=== PATIENT | female | born 1975 | race Caucasian/White ===

== ENCOUNTER 2021-07-27 17:36 | Emergency (ER) | payer SELFPAY ==
[2021-07-27 19:37] LABS: BASOPHIL 0.7 % (0-2); EOSINOPHIL 2.2 % (0-5); HCT 32.7 % (37.0-47.0); HGB 10.6 g/dl (12.5-16.0); LYMPHOCYTE 45.3 % (15-48); MCH 33.1 pg (25.0-31.0); MCHC 32.4 g/dL (32.0-36.0); MCV 102.2 fL (78.0-100.0); MONOCYTE 7.2 % (0-12); MPV 9.3 fL (6.0-9.5); NEUTROPHIL 43.7 % (41-80); NRBC 0; PLT 219 K/uL (150-400); RDW 16.4 % (11.5-14.0); WBC 5.5 K/uL (4.0-10.5)
[2021-07-27 19:58] LABS: INR 1.07 (0.9-1.2); PROTHROMBIN TIME 13.3 SECONDS (11.8-13.4); PTT 28.1 SECONDS (24.4-34.7)
[2021-07-27 20:14] LABS: ALBUMIN 2.7 g/dL (3.4-5.0); BILIRUBIN - TOTAL 0.3 mg/dL (0.2-1.0); BUN/CREAT RATIO (CALC) 21.3 RATIO; CREATININE 0.47 mg/dL (0.51-0.95); MAGNESIUM 1.5 mg/dL (1.8-2.4); TOTAL PROTEIN 5.7 g/dL (6.4-8.2)
[2021-07-27 20:32] LABS: POTASSIUM 3.7 mmol/L (3.5-5.1)
[2021-07-27] MEDS ORDERED: LASIX20 MG PO (22:39)
== END 2021-07-27 23:48 | disposition home or self-care (01) ==
LOC: FER 17:36
PROVIDERS: Emergency Medicine
DX: R22.43 Localized swelling, mass and lump, lower limb, bilateral (principal); E11.9 Type 2 diabetes mellitus without complications; F17.200 Nicotine dependence, unspecified, uncomplicated; Z72.89 Other problems related to lifestyle; Z28.310 Unvaccinated for COVID-19
CPT/HCPCS: 36415; 80053; 83735; 83880; 84100; 84484; 85025; 85610; 85730; G0480; J1940; J3475; J7050